=== PATIENT | male | born 1955 ===

== ENCOUNTER 2017-10-11 22:29 | Emergency (ER) | payer SELFPAY ==
[2017-10-11 22:34] VITALS: RESP 18; O2SAT 98
[2017-10-11] MEDS ORDERED: Albuterol-Ipratrop 3 mg / 0.5 (3 ml) UD INH STA ×2 (22:35→22:48)
--- NOTE | 2017-10-11 22:35 | ED PDOC ---
HPI: CCC, URI, Sore Throat Time Seen by Provider: 10/11/17 22:34 Chief Complaint (Nursing): Cough, Cold, Congestion Chief Complaint (Provider): cough History Per: Patient Additional Complaint(s): 61-year-old male presents to emergency department with persistent cough that started yesterday. Patient admits to being a heavy smoker. He denies recent travel or known sick contacts. No fever or chills. Patient does have chest pain secondary to excessive coughing. He arrives via ambulance this evening. Past Medical History Reviewed: Historical Data, Nursing Documentation, Vital Signs Vital Signs: Last Vital Signs Temp 98.5 F 10/12/17 01:16 Pulse 101 H 10/12/17 01:16 Resp 18 10/12/17 01:16 BP 115/65 10/12/17 01:16 Pulse Ox 98 10/12/17 01:16 - Medical History PMH: No Chronic Diseases - Family History Family History: States: No Known Family Hx - Living Arrangements Living Arrangements: With Family - Social History Current smoker - smoking cessation education provided: Yes (1 ppd) Alcohol: None Drugs: Denies - Home Medications Home Medications: Ambulatory Orders Medication Instructions Recorded Albuterol HFA [Ventolin HFA 90 1 puff IH ASDIR #1 unit 10/12/17 mcg/actuation (8 g)] Azithromycin [Zithromax] 250 mg PO DAILY #6 tab 10/12/17 Benzonatate 200 mg PO TID PRN #20 capsule 10/12/17 Prednisone 50 mg PO DAILY #5 tablet 10/12/17 - Allergies Allergies/Adverse Reactions: Allergies Allergy/AdvReac Type Severity Reaction Status Date / Time No Known Allergies Allergy Verified 10/11/17 22:30 Review of Systems ROS Statement: Except As Marked, All Systems Reviewed And Found Negative Constitutional: Negative for: Fever, Chills Cardiovascular: Positive for: Chest Pain (due to cough) Respiratory: Positive for: Cough, Shortness of Breath Gastrointestinal: Negative for: Nausea, Vomiting Physical Exam - Reviewed Nursing Documentation Reviewed: Yes Vital Signs Reviewed: Yes - Physical Exam Appears: Positive for: Well, Non-toxic, No Acute Distress Skin: Positive for: Normal Color. Negative for: Rash Eye Exam: Positive for: Normal appearance Cardiovascular/Chest: Positive for: Regular Rate, Rhythm Respiratory: Positive for: Accessory Muscle Use, Rhonchi, Wheezing. Negative for: Crackles, Rales Extremity: Positive for: Normal ROM Neurologic/Psych: Positive for: Alert, Oriented - Laboratory Results Result Diagrams: 10/11/17 23:14 10/11/17 23:14 - ECG Interpretation Of ECG: NSR 94 bpm, reviewed by PA and ED attending O2 Sat by Pulse Oximetry: 98 Pulse Ox Interpretation: Normal - Other Rad CXR X-Ray: Interpreted by Me, Viewed By Me X-Ray Interpretation: no acute finding Nebulizer Treatments/Peak Flow - Pre/Post Peak Flow Pre Treatment Peak Flow: 200 Post treatment Peak Flow: 300 - Steroid Treatment Steroid: IV (125 mg IV solumedrol) - Clinical Response Clinical Response: Improved Medical Decision Making Medical Decision Makin-year-old male with cough Plan: CXR EKG CBC CMP Troponin IV solumedrol 125 mg Duoneb x 2 PO promethazine syrup Patient reports improvement of symptoms after meds given. He is aware of all diagnostic testing results, all questions answered. Patient will be discharged with prescriptions for Ventolin inhaler, prednisone, Zithromax and Tessalon Perles. Patient was advised to follow-up with clinic or primary doctor in 2-3 days. Patient was counseled regarding importance of smoking cessation. Disposition - Clinical Impression Clinical Impression: Bronchitis - Patient ED Disposition Is Patient to be Admitted: No Counseled Patient/Family Regarding: Studies Performed, Diagnosis, Need For Followup, Rx Given, Smoking Cessation - Disposition Referrals: [facility] [Outside] Disposition: Routine/Home Disposition Time: 00:55 Condition: STABLE Additional Instructions: Take prescription meds as directed. Stop smoking. Follow-up with clinic in 2-3 days or return any time if acutely worse. Prescriptions: Albuterol HFA [Ventolin HFA 90 mcg/actuation (8 g)] 1 puff IH ASDIR #1 unit Azithromycin [Zithromax] 250 mg PO DAILY #6 tab Benzonatate 200 mg PO TID PRN #20 capsule PRN Reason: Cough Prednisone 50 mg PO DAILY #5 tablet Instructions: Acute Bronchitis, Quitting Smoking Forms: [employer] [place] (Maltese) Print Language: MONEGASQUE Results - Lab Results Lab Results: 10/11/17 10/11/17 23:14 23:14 WBC 11.6 H RBC 3.85 L Hgb 12.5 Hct 37.0 MCV 96.1 H MCH 32.5 H MCHC 33.8 RDW 13.6 Plt Count 269 MPV 7.8 Neut % (Auto) 72.6 Lymph % (Auto) 14.6 L [place]aston % (Auto) 10.4 H Eos % (Auto) 1.7 Baso % (Auto) 0.7 Neut # (Auto) 8.4 H Lymph # (Auto) 1.7 [place] # (Auto) 1.2 H Eos # (Auto) 0.2 Baso # (Auto) 0.1 Sodium 141 Potassium 4.0 Chloride 103 Carbon Dioxide 28 Anion Gap 14 BUN 18 Creatinine 0.7 L Est GFR ( Amer) > 60 Est GFR (Non-Af Amer) > 60 Random Glucose 117 H Calcium 9.3 Total Bilirubin 0.3 AST 46 ALT 34 Alkaline Phosphatase 77 Troponin I < 0.0120 Total Protein 7.8 Albumin 4.1 Globulin 3.6 Albumin/Globulin Ratio 1.1
[2017-10-11] MEDS ORDERED: Promethazine 6.25 MG/5 ML CUP PO STA (22:41)
[2017-10-11] MEDS ORDERED: Albuterol-Ipratrop 3 mg / 0.5 (3 ml) UD ONE (22:47)
[2017-10-11 23:19] LABS: BASO # 0.1 K/uL (0.0-0.2); BASO % 0.7 % (0.0-2.0); EOS # 0.2 K/uL (0.0-0.7); EOS % 1.7 % (0.0-4.0); HEMOGLOBIN 12.5 g/dL (12.0-18.0); LYMPH # 1.7 K/uL (1.0-4.3); LYMPH % 14.6 % (20.0-40.0); MEAN CELL VOLUME 96.1 fl (80.0-94.0); MEAN CORPUSCULAR HEMOGLOBIN 32.5 pg (27.0-31.0); MEAN CORPUSCULAR HGB CONC 33.8 g/dL (33.0-37.0); MEAN PLATELET VOLUME 7.8 fl (7.2-11.7); MONO # 1.2 K/uL (0.0-0.8); MONO % 10.4 % (0.0-10.0); NEUT # 8.4 K/uL (1.8-7.0); NEUT % 72.6 % (50.0-75.0); NRBC % 0.1 % (0.0-0.0); RBC 3.85 Mil/uL (4.40-5.90); RED CELL DISTRIBUTION WIDTH 13.6 % (11.5-14.5); WHITE BLOOD COUNT 11.6 K/uL (4.8-10.8)
[2017-10-11] MEDS ORDERED: Promethazine 6.25 MG/5 ML CUP ONE (23:20)
[2017-10-11 23:27] LABS: ALB/GLOB RATIO 1.1 (1.0-2.1); ALBUMIN 4.1 g/dL (3.5-5.0); ALT/SGPT 34 U/L (21-72); AST/SGOT 46 U/L (17-59); BLOOD UREA NITROGEN 18 mg/dl (9-20); CALCIUM 9.3 mg/dL (8.4-10.2); GFR AFRICAN-AMERICAN > 60; GFR NON-AFRICAN AMERICAN > 60
[2017-10-12 01:17] VITALS: BP 115/65; PULSE 101; TEMP 98.5
--- NOTE | 2017-10-12 07:16 | RAD ---
Date of service: 10/12/2017 HISTORY: cough COMPARISON: No prior. TECHNIQUE: Chest PA and lateral FINDINGS: LUNGS: No active pulmonary disease. PLEURA: No significant pleural effusion identified. No pneumothorax apparent. CARDIOVASCULAR: Normal. OSSEOUS STRUCTURES: No significant abnormalities. VISUALIZED UPPER ABDOMEN: Normal. OTHER FINDINGS: None. IMPRESSION: No active disease.
--- NOTE | 2017-10-12 07:50 | CARD ---
APPROVED REPORT Date of service: 10/11/2017 <Conclusion> Normal sinus rhythm Nonspecific T wave abnormality Prolonged QT Abnormal ECG
== END 2017-10-12 02:03 | disposition home or self-care (01) ==
LOC: H.ER 22:29
DX: J40 Bronchitis, not specified as acute or chronic (principal); F17.210 Nicotine dependence, cigarettes, uncomplicated
CPT/HCPCS: 71046; 80053; 84484; 85025; 93005; 96374; 99284; J2930